=== PATIENT | female | born 1995 | race Caucasian/White ===

== ENCOUNTER 2023-10-04 08:09 | Emergency (ER) | payer OTHER, SELFPAY ==
[2023-10-04 08:15] VITALS: BP 145/87; PULSE 100; TEMP 36.4; O2SAT 99; BMI 40.2
--- NOTE | 2023-10-04 08:21 | CT_ITS ---
The [address] [address] Patient Name: SERGEY CHILD MRN: [id number] date: 1995 Sex: F Assigned Patient Location: ER Current Patient Location: ER Accession/Order Number: [id number] Exam Date: 10/04/2023 08:33 Report Date: 10/04/2023 09:11 At the request of: NING MCCAIN Procedure: CT cervical spine wo con EXAM: CT cervical spine without contrast HISTORY: neck pain with right arm numbness COMPARISON: None. TECHNIQUE: Contiguous transaxial images obtained from skullbase through cervical spine without administration of intravenous contrast. Coronal and sagittal reformations were obtained. Dose reduction: mA and/or kV are were adjusted by automated exposure control software based upon patients height and weight. FINDINGS: There is no prevertebral soft tissue swelling or acute cervical spine fracture. Intervertebral disc spaces and vertebral body heights are normal. There is a mild central disc protrusion at C5-6 that effaces the ventral thecal sac. There is no cervical listhesis. The osseous central canal and osseous neural foramina are patent. CT/CT cervical spine wo con IMPRESSION: 1. No acute osseous abnormality of the cervical spine. 2. Mild central disc protrusion at C5-C6 and effaces the ventral thecal sac. If the patient has radicular symptoms, dedicated cervical MRI may be performed for further evaluation. Electronically authenticated by: ADDIE HAYDEN Date: 10/04/2023 09:11
[2023-10-04] MEDS: KETOROLAC TROMETHAMINE 60 MG/2 ML VIAL IM (08:30)
--- NOTE | 2023-10-04 08:33 | ED.EXTPRO1 ---
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 She is right-handed The patient denies any incident at work that caused the pain including carrying something heavy. And she mentioned that she was off work when she had the pain The patient denies any relation to movement but she mentioned that laying on her right side and laying on her back because the pain. No record of using [id number] medication Related Data Previous Rx's ?Medication ?Instructions ?Recorded acetaminophen 650 mg 650 mg PO Q8H PRN pain #20 tabs 10/04/23 tablet,extended release (Tylenol 8 Hour) orphenadrine citrate 100 mg 100 mg PO BID PRN muscle spasm #10 10/04/23 tablet,extended release tabs prednisone 20 mg tablet 40 mg (2 x 20 mg) PO DAILY 5 days 10/04/23 #10 tabs Allergies Allergy/AdvReac Type Severity Reaction Status Date / Time No Known Drug Allergies Allergy Verified 10/04/23 08:16 Review of Systems ROS Status of ROS 10 or more systems reviewed and unremarkable except as noted in history and below Exam Narrative Exam Narrative: Nurses notes and vital signs reviewed and patient is not hypoxic. General: Well-appearing and in no apparent distress. Skin: Warm, dry, no pallor noted. No rash. Head: Normocephalic, atraumatic. Neck: At the mid cervical area the patient have tenderness upon palpation of the right paraspinal muscles at the intervertebral line there is no tenderness, Eye: Pupils are equal, round and EOMI. No scleral icterus. Ears, Nose, Mouth, and Throat: TM are clear, no nasal mucosal hypertrophy. Oral mucosa is moist, no posterior oropharynx erythema, uvula is mid-line Cardiovascular: Regular Rate and Rhythm without murmur, gallop or rub. Respiratory: No accessory muscle use or respiratory distress. Lungs are clear to auscultation, no wheezing, rales or rhonchi Chest Wall: no tenderness Back: No midline thoracic or lumbar vertebral tenderness. No CVA tenderness Musculoskeletal: There is a limitation of abduction above 90 degrees as well as posterior rotation, due to pain the patient have no vascular injury detected. GI: Abdomen is soft, non-distended. Normal bowel sounds. No masses appreciated. No tenderness to palpation. No rebound, guarding, or rigidity noted. Neurological: A&O x4. No cranial nerve dysfunction observed. No truncal ataxia. Moves all extremities. Sensation intact. Psychiatric: Cooperative and interactive. Normal mood and affect. Constitutional Vital Signs, click to edit/add: Last Vital Signs Temp 97.5 F L 10/04/23 08:15 Pulse 100 H 10/04/23 08:15 Resp 18 10/04/23 08:15 BP 145/87 H 10/04/23 08:15 Pulse Ox 99 10/04/23 08:15 O2 Del Method Room Air 10/04/23 08:15 Course Vital Signs Vital signs: Vital Signs Temperature 97.5 F L 10/04/23 08:15 Pulse Rate 100 H 10/04/23 08:15 Respiratory Rate 18 10/04/23 08:15 Blood Pressure 145/87 H 10/04/23 08:15 Pulse Oximetry 99 10/04/23 08:15 Oxygen Delivery Method Room Air 10/04/23 08:15 Temperature 97.5 F L 10/04/23 08:15 Pulse Rate 100 H 10/04/23 08:15 Respiratory Rate 18 10/04/23 08:15 Blood Pressure 145/87 H 10/04/23 08:15 Pulse Oximetry 99 10/04/23 08:15 Oxygen Delivery Method Room Air 10/04/23 08:15 MDM - Extremity (Nontraumatic) MDM Narrative Medical decision making narrative: Right now the patient had a CAT scan of the cervical spine due to the patient symptoms and concern for disc involvement especially with her physical work CT of the cervical spine shows mild C5-C6 protrusion Right now the patient was treated with prednisone as well as Norflex and Tylenol She does not have any alarming symptoms but she was instructed in case of any weakness or any progression of her symptoms she is to come back to the ER but otherwise she have to follow-up with her primary care doctor for further referral with neurosurgery for evaluation in case needed The patient instructed that in case the progression of symptoms she is going to need an MRI and right now as she does not have any alarming symptoms she does not have to do it in the ER but in case symptoms continue or any weakness in the right hand the patient to come back to the ER The patient is to follow up with primary care physician in next 2-3 days or to return to the emergency department should any of the signs or symptoms worsen or new symptoms develop. The patient agrees with the following Diagnosis and Treatment plan and the patient will be discharged home. Discharge Plan Discharge Stand Alone Forms: Portal Instructions Chief Complaint: Extremity Problem, Nontraumatic Clinical Impression: Cervical disc disease Patient Disposition: Home, Self-Care Time of Disposition Decision: 09:27 Condition: Good Prescriptions / Home Meds: New prednisone 20 mg tablet 40 mg PO DAILY 5 Days Qty: 10 0RF orphenadrine citrate 100 mg tablet extended release 100 mg PO BID PRN (Reason: muscle spasm) Qty: 10 0RF acetaminophen [Tylenol 8 Hour] 650 mg tablet extended release 650 mg PO Q8H PRN (Reason: pain) Qty: 20 0RF Print Language: Romanian Instructions: Cervical Disc Herniation (ED) Referrals: Sarah Silva MD [Primary Care Provider] - 1 week
[2023-10-04 09:34] VITALS: BP 136/74; PULSE 84; O2SAT 99
== END 2023-10-04 09:35 | disposition home or self-care (01) ==
PROVIDERS: Emergency Provider Emergency Medicine; PCP Psychiatry & Neurology Neurology
DX: M50.90 Cervical disc disorder, unspecified, unspecified cervical region (principal)
CPT/HCPCS: 72125; 96372; 99284; J1885